=== PATIENT | female | born 1950 ===

== ENCOUNTER 2024-08-19 19:12 | Inpatient (IN) | payer BC, OTHER ==
[2024-08-19 20:44] LABS: ABSOLUTE IMMATURE GRANULOCYTES 0.02 x10^3/uL (0.0-0.031); BASOPHILS # 0.06 x10^3/uL (0.01-0.08); EOSINOPHIL % 1.8 % (0.7-5.8); EOSINOPHILS # 0.14 x10^3/uL (0.04-0.36); HEMOGLOBIN 13.6 g/dL (11.2-15.7); MCHC 33.2 g/dl (32.2-35.5); MEAN CELL VOLUME 97.2 fl (79.4-94.8); MONOCYTE # 0.62 x10^3/uL (0.24-0.86); MONOCYTE % 8.2 % (4.7-12.5); PLATELET COUNT 362 x10^3/uL (182-369); RDW 13.5 % (12.4-16.6)
[2024-08-19 21:13] LABS: POTASSIUM 3.6 mmol/L (3.5-5.1)
[2024-08-19 21:15] LABS: ALBUMIN 3.1 g/dl (3.4-5.0); CALCIUM 9.9 mg/dL (8.5-10.1)
[2024-08-19 21:16] LABS: BLOOD UREA NITROGEN 19.3 mg/dL (7-18); MAGNESIUM 1.2 mg/dL (1.8-2.4)
[2024-08-19 21:18] LABS: CREATININE 1.2 mg/dL (0.55-1.3)
[2024-08-19 21:19] LABS: PHOSPHOROUS 3.2 mg/dL (2.5-4.9)
[2024-08-19 21:20] LABS: BILIRUBIN,TOTAL 0.1 mg/dL (0.2-1); TOT PROT 6.6 g/dl (6.4-8.2)
[2024-08-19] MEDS ORDERED: THIAMINE HCL 200 MG/2 ML VIAL ONE ×2 (21:41→21:50)
[2024-08-19] MEDS: THIAMINE HCL 200 MG/2 ML VIAL IVPB ONE (21:59)
[2024-08-19] MEDS ORDERED: MAGNESIUM SULFATE IN WATER 2 GM/50 ML IVPB IVPB ONE (22:22)
[2024-08-19] MEDS ORDERED: LORazepam 1 MG TABLET PO PRN (22:41)
[2024-08-19] MEDS ORDERED: LORazepam 2 MG/ML SDV VIAL IVPUSH PRN (22:41)
[2024-08-19] MEDS: MAGNESIUM SULFATE IN WATER 2 GM/50 ML IVPB IVPB ONE (22:48)
[2024-08-19] MEDS: SODIUM CHLORIDE 1,000 ML IV SCH (22:57)
[2024-08-19] MEDS: LORazepam 2 MG TABLET PO SCH (22:58)
[2024-08-19 23:06] LABS: PH,URINE 6.5 (5.0-8.0); URINE APPEARANCE CLEAR; URINE BILIRUBIN NEGATIVE (NEGATIVE); URINE COLOR YELLOW; URINE GLUCOSE (UA) NEGATIVE (NEGATIVE); URINE KETONE NEGATIVE (NEGATIVE); URINE LEUK ESTERASE NEGATIVE (NEGATIVE); URINE NITRITE NEGATIVE (NEGATIVE); URINE PROTEIN NEGATIVE (NEGATIVE); URINE UROBILINOGEN 0.2 mg/dL (0.2-1.0)
[2024-08-19 23:15] LABS: METHADONE, UR NEGATIVE (NEGATIVE); OPIATES, URI NEGATIVE (NEGATIVE); URINE BARBITURATES NEGATIVE (NEGATIVE); URINE BENZODIAZEPINES NEGATIVE (NEGATIVE)
[2024-08-19 23:16] LABS: PHENCYCLIDINE,URINE NEGATIVE (NEGATIVE)
[2024-08-19 23:18] LABS: COCAINE, UR NEGATIVE (NEGATIVE); URINE AMPHETAMINES NEGATIVE (NEGATIVE)
[2024-08-20] MEDS: LORazepam 1 MG TABLET PO SCH (00:10)
[2024-08-20] MEDS ORDERED: ONDANSETRON 4 MG/2 ML VIAL IVPUSH PRN (00:47)
[2024-08-20 01:02] VITALS: RESP 18; BMI 38.0
[2024-08-20] MEDS: THIAMINE HCL 200 MG/2 ML VIAL IVPB SCH (05:22)
[2024-08-20] MEDS: DULoxetine HCL 30 MG CAPSULE.DR PO SCH ×2 (06:00→21:34)
[2024-08-20] MEDS: LEVOTHYROXINE NA 100 MCG TABLET (FP) PO SCH (06:01)
[2024-08-20 09:14] LABS: HEMATOCRIT 38.1 % (34.1-44.9); HEMOGLOBIN 12.7 g/dL (11.2-15.7); MCHC 33.3 g/dl (32.2-35.5); MEAN CELL VOLUME 96.9 fl (79.4-94.8); MEAN PLT VOLUME 11.7 fl (9.4-12.3); PLATELET COUNT 287 x10^3/uL (182-369); RDW 12.9 % (12.4-16.6)
[2024-08-20] MEDS: GABAPENTIN 300 MG CAPSULE PO SCH (09:34)
[2024-08-20] MEDS: LORATADINE 10 MG TABLET PO SCH (09:35)
[2024-08-20] MEDS: ENOXAPARIN NA (PORCINE) 40 MG/0.4 ML DISP.SYRIN SQ SCH (09:35)
[2024-08-20] MEDS: metoPROLOL SUCCINATE 25 MG TAB.SR.24H (FP) PO SCH (09:35)
[2024-08-20] MEDS: FLUTICASONE PROP 0.05% 16 GM NASAL SPRAY NS SCH (09:35)
[2024-08-20] MEDS: PANTOPRAZOLE 40 MG TABLET PO SCH (09:35)
[2024-08-20] MEDS: ACAMPROSATE CALCIUM 333 MG TABLET.DR PO SCH (09:37)
[2024-08-20 09:48] LABS: POTASSIUM 3.2 mmol/L (3.5-5.1)
[2024-08-20 09:50] LABS: N-TERMINAL BNP 253.3 pg/ml (5-125)
[2024-08-20 09:54] LABS: ALBUMIN 2.9 g/dl (3.4-5.0)
[2024-08-20 09:58] LABS: BLOOD UREA NITROGEN 17.5 mg/dL (7-18); CALCIUM 8.9 mg/dL (8.5-10.1)
[2024-08-20 09:59] LABS: MAGNESIUM 1.3 mg/dL (1.8-2.4)
[2024-08-20 10:01] LABS: CREATININE 0.9 mg/dL (0.55-1.3)
[2024-08-20 10:02] LABS: BILIRUBIN,TOTAL 0.3 mg/dL (0.2-1)
[2024-08-20] MEDS: MAGNESIUM 2GM/50ML STERILE WATER IVPB IVPB ONE (11:17)
[2024-08-20] MEDS: POTASSIUM CHLORIDE ORAL LIQUID 20 MEQ/15 ML PO ONE (13:04)
[2024-08-20] MEDS: LATANOPROST 0.005% OPHTH SOLN 2.5ML BOTTLE OD SCH (21:35)
[2024-08-20] MEDS: hydrOXYzine HCL 10 MG/5 ML UNIT DOSE CUPS PO SCH (21:36)
[2024-08-20] MEDS ORDERED: KETOROLAC TROMETHAMINE 30 MG/1 ML VIAL IVPUSH PRN (21:51)
[2024-08-21] MEDS: LORazepam 1 MG TABLET PO SCH (05:23)
[2024-08-21 10:29] LABS: POTASSIUM 3.7 mmol/L (3.5-5.1)
[2024-08-21 10:31] LABS: BLOOD UREA NITROGEN 11.9 mg/dL (7-18); MAGNESIUM 1.4 mg/dL (1.8-2.4)
[2024-08-21 10:34] LABS: CREATININE 0.9 mg/dL (0.55-1.3)
[2024-08-22] MEDS ORDERED: LORazepam 0.5 MG TABLET PO PRN
[2024-08-22] MEDS: LORazepam 0.5 MG TABLET PO SCH (05:07)
[2024-08-22 07:18] LABS: ABSOLUTE IMMATURE GRANULOCYTES 0.04 x10^3/uL (0.0-0.031); BASOPHILS # 0.03 x10^3/uL (0.01-0.08); EOSINOPHIL % 1.2 % (0.7-5.8); EOSINOPHILS # 0.09 x10^3/uL (0.04-0.36); HEMATOCRIT 40.7 % (34.1-44.9); HEMOGLOBIN 13.5 g/dL (11.2-15.7); MCHC 33.2 g/dl (32.2-35.5); MEAN CELL VOLUME 96.7 fl (79.4-94.8); MONOCYTE # 0.63 x10^3/uL (0.24-0.86); MONOCYTE % 8.1 % (4.7-12.5); PLATELET COUNT 249 x10^3/uL (182-369)
[2024-08-22 07:34] LABS: POTASSIUM 3.3 mmol/L (3.5-5.1)
[2024-08-22 07:36] LABS: CALCIUM 9.1 mg/dL (8.5-10.1)
[2024-08-22 07:37] LABS: ALBUMIN 2.8 g/dl (3.4-5.0); BLOOD UREA NITROGEN 11.5 mg/dL (7-18)
[2024-08-22 07:40] LABS: CREATININE 0.8 mg/dL (0.55-1.3)
[2024-08-22 07:42] LABS: BILIRUBIN,TOTAL 0.7 mg/dL (0.2-1)
[2024-08-22] MEDS: THIAMINE HCL 200 MG/2 ML VIAL IVPB SCH (09:12)
[2024-08-22] MEDS: POTASSIUM CHLORIDE TABS 20 MEQ TABLET.ER (FP) PO ONE (13:16)
[2024-08-23] MEDS: LORazepam 0.5 MG TABLET PO ONE (05:12)
[2024-08-23] MEDS: MAGNESIUM 2GM/50ML STERILE WATER IVPB IVPB ONE (13:17)
[2024-08-23] MEDS ORDERED: ACETAMINOPHEN 325 MG TABLET (FP) PO PRN (13:45)
[2024-08-23] MEDS: LIDOCAINE 4% PATCH TP SCH (14:07)
[2024-08-23] MEDS: LIDOCAINE PATCH REMOVAL MC SCH (21:09)
[2024-08-24 09:16] LABS: CALCIUM 9.3 mg/dL (8.5-10.1); POTASSIUM 3.6 mmol/L (3.5-5.1)
[2024-08-24 09:17] LABS: BLOOD UREA NITROGEN 12.6 mg/dL (7-18); MAGNESIUM 1.4 mg/dL (1.8-2.4)
[2024-08-24 09:20] LABS: CREATININE 0.8 mg/dL (0.55-1.3)
[2024-08-24] MEDS: THIAMINE 100 MG TABLET PO SCH (09:20)
[2024-08-24] MEDS: amLODIPine BESYLATE 5 MG TABLET (FP) PO SCH (09:20)
[2024-08-24] MEDS: FOLIC ACID 1 MG TABLET (FP) PO SCH (09:20)
[2024-08-24] MEDS: MAGNESIUM 2GM/50ML STERILE WATER IVPB IVPB ONE (10:36)
[2024-08-24 10:52] VITALS: BP 138/85; PULSE 79; TEMP 98.4
== END 2024-08-24 14:17 | disposition home or self-care (01) | DRG 897 ==
LOC: JER 19:12 → JERBED 22:36 → J5S 08-20 00:31
PROVIDERS: ADMIT Internal Medicine; ATTEND Internal Medicine
DX: F10.239 Alcohol dependence with withdrawal, unspecified (principal); R44.0 Auditory hallucinations; E51.2 Wernicke's encephalopathy; I10 Essential (primary) hypertension; E03.9 Hypothyroidism, unspecified; E83.42 Hypomagnesemia; J44.9 Chronic obstructive pulmonary disease, unspecified; G62.9 Polyneuropathy, unspecified; H05.20 Unspecified exophthalmos
CPT/HCPCS: 36415; 70450-TC; 71045-TC-FY; 80048; 80053; 80307; 81003; 82607; 82746; 82962; 83690; 83735; 83880; 84100; 84439; 84443; 85025; 85027; 93005; 93010; 93306-TC; 97116-GP; 97161-GP; 99285-25